=== PATIENT | female | born 1945 | race Caucasian/White ===

== ENCOUNTER 2017-05-16 13:34 | Inpatient (IN) | payer OTHER ==
[~2017-05-16] VITALS: Ht 165.1 cm; Wt 98.9 kg
[2017-05-27] MEDS ORDERED: NORVASC5 MG PO (10:55)
== END 2017-06-05 13:47 | disposition home or self-care (01) | DRG 470 ==
LOC: O/R 06-03 05:26 → SURH 06-03 05:26
PROVIDERS: Orthopaedic Surgery
PROC: 0SRC0J9 Replacement of Right Knee Joint with Synthetic Substitute, Cemented, Open Approach (ICD-10-PCS; principal; 2017-06-03 07:00)
DX: M17.11 Unilateral primary osteoarthritis, right knee (principal); M81.0 Age-related osteoporosis without current pathological fracture